=== PATIENT | male | born 1955 | race Caucasian/White ===

== ENCOUNTER 2016-11-09 11:22 | Emergency (ER) | payer SELFPAY ==
[~2016-11-09] VITALS: Ht 172.7 cm; Wt 77.0 kg
[2016-11-09 11:33] VITALS: BP 124/82
== END 2016-11-09 18:14 | disposition left against medical advice (07) ==
LOC: ER 12:40
DX: R50.9 Fever, unspecified (principal); Z53.21 Procedure and treatment not carried out due to patient leaving prior to being seen by health care provider